=== PATIENT | female | born 1945 | race Caucasian/White ===

== ENCOUNTER → 2020-02-23 13:49 | Outpatient (CLI) | payer OTHER, SELFPAY ==
[2020-02-23 14:03] LABS: Bacteria Urine None Seen; WBC Urine None Seen (0-5/HPF)
[2020-02-23 14:46] LABS: Add Manual Diff / Slide Review NO; Basophils Absolute Auto 100 /uL (0-100); Basophils Percent Auto 1.1 % (0-2); Eosinophils Absolute Auto 600 /uL (0-450); Eosinophils Percent Auto 6.2 % (2-4); Hematocrit 35.6 % (36-46); Hemoglobin 11.8 g/dL (12.0-16.0); Lymphocytes Absolute Auto 2500 /uL (1100-4500); Lymphocytes Percent Auto 26.2 % (25-40); Mean Corpuscular HGB Conc 33.3 % (30-36); Mean Corpuscular Hemoglobin 30.7 PG (26-34); Mean Corpuscular Volume 92.3 fL (80-100); Monocytes Absolute Auto 600 /uL (0-900); Monocytes Percent Auto 6.4 % (3-14); Neutrophils Absolute Auto 5700 /uL (1500-7000); Neutrophils Percent Auto 60.1 % (50-75); Platelet Count 298 X10^3/uL (150-400); Red Blood Cell Count 3.86 X10^6/uL (4.0-5.2); Red Cell Distribution Width 13.1 % (11.6-14.8); White Blood Cell Count 9.5 X10^3/uL (4.5-11.0)
[2020-02-23 14:51] LABS: BUN Creatinine Ratio 34.7 (6-22); Blood Urea Nitrogen 25 mg/dL (7-17); Calcium 9.2 mg/dL (8.4-10.2); Carbon Dioxide 32 mmol/L (22-32); Chloride 102 mmol/L (98-107); Estimated Glomerular Filt Rate > 60.0 mL/min (>60); Glucose 121 mg/dL (80-110); HEMOLYSIS < 15 (0-50); Hemoglobin A1C% w Est Avg Glu 5.4 % (4.0-6.0); Potassium 4.1 mmol/L (3.4-5.1); Sodium 137 mmol/L (137-145)
[2020-02-23 15:05] LABS: Appearance Urine UA CLEAR; Bilirubin Urine UA NEGATIVE (NEGATIVE); Color Urine UA YELLOW; Glucose Urine UA NEGATIVE (Negative); Ketones Urine UA NEGATIVE (NEGATIVE); Leukocyte Esterase Urine UA NEGATIVE (NEGATIVE); Nitrite Urine UA NEGATIVE (Negative); Occult Blood Urine UA TRACE-LYSED (Negative); Protein Urine UA NEGATIVE (Negative); Urobilinogen Urine UA 0.2 E.U./dL (0.2)
[2020-02-23 15:24] LABS: Culture Indicated Urine Cult Not Indicated; RBC Urine 0-1/HPF (0-5/HPF); Squamous Epithelial Cell Urine 0-1 /HPF (0-5/HPF)
== END ==
PROVIDERS: Referring Provider Orthopaedic Surgery; Visit Provider Orthopaedic Surgery
DX: Z01.818 Encounter for other preprocedural examination (principal); Z01.812 Encounter for preprocedural laboratory examination; R73.9 Hyperglycemia, unspecified; N39.0 Urinary tract infection, site not specified
CPT/HCPCS: 36415; 80048; 81001; 83036; 85025; 93005

== ENCOUNTER → 2020-03-11 13:10 | Outpatient (CLI) | payer OTHER, SELFPAY ==
[2020-03-11 14:36] LABS: COVID19 -Nasal RAPID Negative (Negative)
== END ==
PROVIDERS: Referring Provider Physician Assistant; Visit Provider Physician Assistant
DX: Z01.812 Encounter for preprocedural laboratory examination (principal); Z20.828 Contact with and (suspected) exposure to other viral communicable diseases
CPT/HCPCS: 87635; C9803

== ENCOUNTER 2020-03-15 13:00 | Observation (INO) | payer OTHER, SELFPAY ==
[2020-03-09 08:27] VITALS: BMI 23.8
[2020-03-14] VITALS (16 sets, daily range): BP systolic 99–131; BP diastolic 47–81; PULSE 75–99; RESP 12–18; TEMP 35.2–37.2; O2SAT 96–100; BMI 24.3
--- NOTE | 2020-03-14 | DI.RAD.S_ITS ---
PROCEDURE: XR HIP W PEL IF DONE LT 2V INDICATIONS: POST OPERATIVE LEFT HIP TECHNIQUE: AP pelvis and lateral view of the left hip [facility]. [facility], [facility]14[facility]2020, 10:10. FINDINGS: Bones: Patient is status post left hip arthroplasty, with hardware components in expected positions. The hip joint appears congruent. The visualized bony structures appear intact. Moderate right hip joint degeneration. Soft tissues: Overlying postoperative changes are noted. No suspicious soft tissue densities. IMPRESSION: Expected postoperative appearance. Dictated by: Wes Woodson M.D. on 03/14/2020 at 12:26 Approved by: Wes Woodson M.D. on 03/14/2020 at 12:26
--- NOTE | 2020-03-14 06:00 | DI.RAD.S_ITS ---
PROCEDURE: XR HIP W PEL IF DONE LT 2V INDICATIONS: INTEROPERATIVE LEFT HIP TECHNIQUE: 2 view(s) of the hip acquired. COMPARISON: [facility] [place], CR, XR PELVIS WITH LATERAL HIP LEFT, 02/23/2020, 11:18. FINDINGS: Intraoperative image demonstrates left hip arthroplasty. There is good anatomic alignment. However, it is noted that the entire arthroplasty not included within the field of view. IMPRESSION: Intraoperative left hip arthroplasty as above. Dictated by: Aileen Tate M.D. on 03/14/2020 at 10:55 Approved by: Aileen Ttae M.D. on 03/14/2020 at 10:56
[2020-03-14] MEDS: LACTATED RINGERS 1,000 ML 42 ML IV ×2 (07:15→10:23)
[2020-03-14] MEDS: ACETAMINOPHEN 325 MG TABLET 975 MG PO (07:18)
[2020-03-14] MEDS: PREGABALIN 75 MG CAPSULE PO (07:19)
[2020-03-14] MEDS: MELOXICAM 7.5 MG TABLET 15 MG PO (07:19)
[2020-03-14] MEDS: VANCOMYCIN 1,000 MG/200 ML PIGGYBACK 200 MG IV (07:19)
[2020-03-14] MEDS: CEFAZOLIN 2 GM/100 ML FROZ.PIGGY IV (07:45)
--- NOTE | 2020-03-14 07:45 | PM.PREOP ---
Pre-operative Note COVID-19 COVID-19 status: Negative Interval Note History & Physical reviewed/Exam performed by Physician: Yes Changes to H&P: No
--- NOTE | 2020-03-14 07:46 | P.OP_ITS ---
Operative Date/Time/Diagnoses Date of procedure: 03/14/20 Time of procedure: 07:46 Pre-op diagnosis: Left hip osteoarthritis Post-op diagnosis: same Procedure & Clinicians Procedure: left total hip arthroplasty anterior approach Same procedure as scheduled: Yes Indications: The patient has had progressively worsening left hip pain with ra diographic changes consistent with arthritis. Non-operative management has failed and the patient has requested total hip replacement. The risks, benefits and alternatives to surgery were discussed with the patient prior to proceeding. Risks discussed included, but were not limited to, failure to relieve pain, leg length discrepancy, dislocation, stiffness, infection, nerve damage, deep venous thrombosis, pulmonary embolism, stroke, coma, heart attack, permanent paralysis and , as well as the potential need for eventual revision of the prosthetic. Surgeon: Kate Cruz Boom Boss: Mirna Oneal Anesthesia Type: General and Spinal Operative Notes Findings: severe left hip osteoarthritis, good stability adequate bone Closure Type: primary Specimen(s): none sent Prosthetic devices, grafts, tissues, transplants, or devices: Cruz and nephew 52 mm R3 cup, size 7 standard offset anthology, +0 Oxinium by 36 Estimated Blood Loss (mL): 250 Blood products transfused: none Procedure in detail: The patient was brought to the operating room. Patient was carefully positioned in the supine position. Time-out was performed and antibiotics were given. Anesthesia was induced. She was positioned in the on the table in order to allow hyperextension of the hip. The left lower extremity was prepped and draped in a standard sterile fashion. An anterior left hip incision was made 1 fingerbreadth lateral to the anterior superior iliac spine and extended distally towards the greater trochanter. Dissection was carried out through skin and subcutaneous tissues. Superficial hemostasis was achieved. The fascia over the tensor fascia izzy was defined and incised with a knife. Two Allis clamps were used to grasp the fascia. Tensor fascia izzy was retracted laterally. A gelpi retractor was placed. Dissection was carried out down along the neck. The circumflex vessels were carefully identified and cauterized with the Aqua Mantis. There was good visualization of the femoral neck. A Cobra was placed superior to the neck and the gluteus fibers were carefully stripped from that superior aspect of the capsule. A 2nd retractor was placed along the inferior aspect of the neck. The rectus insertion along the capsule was partially released. A 3rd retractor that was then gently placed over the rim of the acetabulum under the rectus. Capsule was carefully incised and released from the intertrochanteric line circumferentially superior to the mid sagittal line and inferiorly to the mid sagittal line until the lesser trochanter was palpable. A tag stitch was placed both in the superior and inferior limb of the capsular insertion. Along the acetabulum capsule was also released up to the mid sagittal 12:00 position. A portion of the labrum was resected. A saw was used to perform an osteotomy at the level of the intertrochanteric line and the junction of the superior femoral neck leaving approximately 1 finger breath of residual inferior neck above the lesser trochanter. A 2nd cut was made along the femoral neck at the base of the head and a napkin ring of neck was removed. Corkscrew was placed in the femoral head and the head was removed without difficulty. Retractors were then repositioned around the acetabulum. Residual labrum was resected and additional osteophytes were removed. A reamer that was 4 mm below the templated size was placed by hand in the acetabulum and it was reamed to centralize the acetabulum. It was then reamed up to 2 under the templated size and fluoroscopy was brought in to confirm the position of the reaming and depth of reaming. I reamed 1 under the anticipated size and touched the rim with line to line reaming. A trial cup was placed and noted that it was appropriately sized and fluoroscopy confirmed position and depth. The component was open and inserted without difficulty fluoroscopic imaging was used to confirm that the cup had been adequately seated and was well positioned. The cup was tested and noted to be stable. it was further stabilized with a single screw. The liner was placed. Attention was then directed to the femur. The femur was gently hyperextended additional capsular release was performed as needed in order to allow adequate visualization of the proximal femur with elevation of the femur. Patient was placed in a hyperextended slightly adducted position with maximum external rotation. Box osteotome was used to check for any residual neck as well as scler otic bone along the trochanter. Vandiver pepper was placed in the femur. Additional broaching was performed. Canal finder was used to determine the alignment of the canal and position. Size 1 broach was placed. The canal was then appropriately broached up to the templated size as long as there was adequate stability of the broach and serial advancement of the broach without excessive impingement. Sp ecific attention was directed at avoiding varus attempting to direct the distal aspect of the broach more anteriorly and avoiding excessive anteversion. Trial reduction showed acceptable range of motion, good stability, no posterior impingement, anabaptist of leg length and appropriate lateral shuck. I also hyperflexed the hip and checked that there was no impingement anteriorly and there was good stability with flexion, adduction and internal rotation. Marcaine and Exparel were injected. The stem was placed without difficulty. Repeat trial reduction and x-ray showed acceptable overall position, length, and no evidence of the femoral fracture. Final head was placed. Wound was meticulously irrigated with normal saline. The hip was reduced and additional Exparel and Marcaine were injected. The capsule was closed with interrupted nonabsorbable sutures. The fascia of the tensor was closed with interrupted and running Vicryl. No drain was placed. Any tensor fascia izzy muscle that appeared to be contused or injured which was a minimal amount was carefully resected. Capsule around the tensor was injected with Exparel and Marcaine. The skin was closed with barbed stitches for the s ubcutaneous tissue and skin. We also used surgical glue. The wound was dressed sterilely. Brief Betadine soak was also used and was meticulously irrigated with normal saline. Patient was transferred to recovery room in satisfactory condition. Complications: none Post-operative Condition: stable Disposition: Acute Care Plan for aftercare: The patient will be maintained on a standard total hip replacement protocol with weight bearing as tolerated and anterior hip precautions. The patient will receive Aspirin and sequential compression devices for DVT prophylaxis. The patient will be discharged home when safe for the home environment.
--- NOTE | 2020-03-14 08:36 | SUR.OPER ---
Supine on padded [place] table with bilateral legs secured in padded positioning boots and suspended in positioning spars, operative leg in traction per surgeon. Head on one pillow. Arm on non-operative side secured on padded armboard <90 degrees abduction. Arm on operative side padded and resting across chest then secured with tape over sheet. Padded perineal post in place per surgeon.
[2020-03-14] MEDS: BUPIVACAINE 0.25% W/ EPI (PF) 10 ML VIAL 20 ML INJ (08:58)
[2020-03-14] MEDS: TRANEXAMIC ACID 1,000 MG VIAL 1000 MG IV (08:59)
[2020-03-14] MEDS: TRANEXAMIC ACID 1,000 MG VIAL 1000 MG INJ (10:25)
[2020-03-14] MEDS: BUPIVACAINE LIPOSOME 266 MG/20 ML VIAL INJ (10:37)
[2020-03-14] MEDS: LACTATED RINGERS 1,000 ML 125 ML IV ×2 (12:39→21:28)
--- NOTE | 2020-03-14 12:44 | PC.NURSE ---
Day shift note: Patient admitted to room 210, S/P Left OSMAR scheduled by Dr. Cruz. Received patient on RA, sats 98%, awake, alert, and pleasantly cooperative. SCDs and IVF initiated on arrival. Oriented to room, environment, and plan of care. No C/O pain or nausea, tolerating fluids. Requesting warm blankets. In touch with daughter via phone/text. High fall risk precautions initiated, call light within reach.
--- NOTE | 2020-03-14 14:05 | PT.IIE ---
Current Diagnoses Unilateral primary osteoarthritis, left hip (03/14/20) Surgery Performed Operation Date: 03/14/20 07:45 Actual Procedures p Total Hip Arthroplasty/Anterior Approach(Left) - Kate Cruz MD Surgical History (Last Updated 03/09/20 @ 09:27 by Tata Santos, RN) History of 3 abortions History of arthroscopy of both knees Hx of bilateral cataract extraction Hx of eye surgery Hx of tubal ligation Medical History (Last Updated 03/09/20 @ 09:35 by Tata Santos RN) Arthritis Cellulitis Depression Elbow pain, left Exercise-induced asthma Glaucoma Herpes Hypotension Low back pain Osteoarthritis Osteoporosis Pseudogout RLS (restless legs syndrome) Shingles Skin cancer (06/2019) Sleep apnea Spinal stenosis TIA (transient ischemic attack) Physical Therapy Inpatient Evaluation/Re-Eval M1 PT/OT-IP Prior Functional Status Start: 03/14/20 16:09 Freq: NEEDED Status: Active Protocol: Document 03/14/20 14:05 AB (Rec: 03/14/20 16:19 AB [id number]) Medical Review Prior Functional Status Medical History Reviewed Yes Communication able to make needs known Mobility and Gait pt stated that she is independent with all mobiltiies and ambulation wthout AD Social History Household Members none Living Arrangements House Number of Floors (Floors) One Floor Number of Stairs To Enter/Railing? 5 steps to enter without rails Home Environment Standard Height Toilet,Tub/ Shower Home Equipment Front Wheel Walker,Straight Cane,Raised Toilet Seat w/ Armrests,Hand Held Shower Additional Social History Comment pt stated that her friend Winnie will stay with her to assist her as long as needed M2 PT-IP Current Condition Start: 03/14/20 16:09 Freq: NEEDED Status: Active Protocol: Document 03/14/20 14:05 AB (Rec: 03/14/20 16:19 AB [email or web address]) Physical Therapy Current Condition Current Condition Evaluation Date 03/14/20 Treatment Diagnosis s/p L OSMAR anterior approach; difficulty in walking Onset Date 03/14/20 Precautions Anterior Hip Precautions No Hip Extension,No Hip External Rotation Weight Bearing Status Weight Bearing Status Weight Bear as Tolerated Allowed Weight Bearing Amount (enter % LLE: WBAT or #) (%) M3 PT-IP Subjective Start: 03/14/20 16:09 Freq: NEEDED Status: Active Protocol: Document 03/14/20 14:05 AB (Rec: 03/14/20 16:19 AB [id number]) Subjective Physical Therapy Visit Type Type Initial Evaluation Visit Start Time 14:05 Visit Stop Time 14:59 Total Visit Minutes 54 Number of MONITORING AND EVALUATION ADVISOR Visits 0 Physical Therapy Visit Comments Patient Comments pt is agreeable to do PT Therapy Pain Assessment Pain When Pain Assessed At Rest Location Left Hip Intensity 7 Scale Used Numeric (0 - 10) Pain Management Techniques Apply Cold,Distraction, Modification of Treatment,Re- positioning,Timing of Activity with Medications M4 PT-IP Mobility and Gait Start: 03/14/20 16:09 Freq: NEEDED Status: Active Protocol: Document 03/14/20 14:05 AB (Rec: 03/14/20 16:19 [email or web address]) PT-Bed Mobility Assessment Supine to Sit Supine to Sit Standby Assistance PT-Transfer Assessment Sit to and From Stand Sit to and from Stand Minimal Assistance,1 Person Assistance,Use of Upper Extremities Equipment Transfer Assistive Device Gait Belt,Front Wheeled Walker Orthotic/Prosthetic Devices or Brace: No Transfers Transfer Destination Chair Transfer Technique ambulated using FWW Transfer Ability Level of Assist Contact Guard Assistance,1 Person Assistance,Use of Upper Extremities Comments Mobility Comments educated pt on anterior hip precautions. completed supine to sit SBA and cues for safety. completed sit to stand min A and cues and ambulated in room min A ~ 40 ft requiring cues for quads activation and to maintain hip precautions. pt agreed to sit up on chair after ambulation. positioned on chair. call light and table placed within reach. Left pt with nurse. Gait Assessment Gait Gait Assistance Required: Minimum Assistance Distance (Feet) 40 Able to Maintain Weight Bearing Status Yes During Gait Assistive Devices Assistive Device Gait Belt,Front Wheeled Walker Orthotic/Prosthetic Devices or Brace: No Gait Deviations General Gait Pattern Antalgic,Decreased Stride Length,Decreased Feet Clearance Factors Limiting Gait Function Factors Limiting Gait Function Decreased Activity Tolerance, Decreased Strength,Limited Range of Motion,Pain,Poor Balance,Poor Safety Awareness Comments Gait Comments pls refer to mobility section for details PT-Balance Assessment Sitting Balance and Reactions Static Sitting Balance Ability Good Dynamic Sitting Balance Ability Good Standing Balance and Reactions Static Standing Balance Ability Fair Dynamic Standing Balance Ability Fair Device Used FWW M5 PT-IP Objective Assessments Start: 03/14/20 16:09 Freq: NEEDED Status: Active Protocol: Document 03/14/20 14:05 AB (Rec: 03/14/20 16:19 AB [id number]) Orientation Orientation/Cognition Level of Alertness Alert Orientation Name,Place,Situation Language Function Ability No Deficits Noted Safety Awareness Decreased Safety Awareness Memory Description Short Term Impaired Gross Range of Motion Lower Extremity ROM Assessment Within Functional Limits Strength Lower Extremity Strength Assessment Left Impaired Hip 3/5 Knee 4/5 Coordination Assessment Gross Coordination Gross Coordination WNL Sensation Assessment Sensation Gross Sensation WNL Muscle Tone Muscle Tone WNL Yes M6 PT-IP Treatment Start: 03/14/20 16:09 Freq: NEEDED Status: Active Protocol: Document 03/14/20 14:05 AB (Rec: 03/14/20 16:19 AB [id number]) Physical Therapy Treatment Education Education Provided Precautions,Weight Bearing Status,Post-Op Packet,Safety M7 PT-IP Assessment and Plan Start: 03/14/20 16:09 Freq: NEEDED Status: Active Protocol: Document 03/14/20 14:05 AB (Rec: 03/14/20 16:19 AB [id number]) PT Summary Assessment and Plan Potential Rehabilitation Potential Good Status of Condition at Evaluation Stable Summary Impairments Pain,ROM,Strength,Balance, Sensation,Cognition,Bed Mobility,Transfers,Gait, Activity Tolerance Assessment Summary pt requiring min A and cues for ambulation using FWW. pt plans to go home and her friend will assist her. pt stated that she is set up for outpt PT already. will conduct caregiver training when appropriate and also complete stair climbing training prior to d/c. will continue to assess progress. Goals Bed Mobility Goal Independent Transfer Goal Independent,Front Wheeled Walker Gait Goal Independent,Front Wheel Walker Gait Distance 200 Other Goals up/down 5 steps using SPC/FRAMING SPECIALIST CGA Days to Meet Goals 5 Frequency of Treatment Frequency Of Treatment Twice a Day Treatment Plan Physical Therapy Treatment Plan Bed Mobility Training,Transfer Training,Gait Training, Therapeutic Exercise,Balance Retraining,Post Op Education, Discharge Planning,Hot or Cold Pack,Neuromuscular Re-ed, Coordination Retraining,Manual Therapy Other Recommendations and Next Treatment ambulation, stair climbing, Focus caregiver training when appropriate Recommendations To Nursing Amount of Assist Needed 1 Person Assist Discharge Recommendations PT Discharge Recommendations Home with Assistance, Outpatient PT Transportation Needs at Discharge Private Vehicle
[2020-03-14] MEDS: TRAMADOL 50 MG TABLET PO (14:19)
[2020-03-14] MEDS: ACETAMINOPHEN 325 MG TABLET 650 MG PO ×2 (14:19→21:12)
[2020-03-14] MEDS: DOCUSATE 100 MG CAPSULE PO (21:12)
[2020-03-14] MEDS: ASPIRIN EC 81 MG TABLET PO (21:12)
[2020-03-14] MEDS: hydrOXYzine pamoate 25 MG CAPSULE PO (21:14)
[2020-03-14] MEDS: polyethylene glycoL 3350 17 GM POWD.PACK PO (21:15)
[2020-03-14] MEDS: HYDROCODONE/ACET 5/325 TABLET 1 TAB PO (23:29)
[2020-03-15] VITALS (12 sets, daily range): BP systolic 82–131; BP diastolic 45–68; PULSE 67–99; RESP 13–18; TEMP 36.4–37; O2SAT 93–100
[2020-03-15] MEDS: hydrOXYzine pamoate 25 MG CAPSULE PO ×2 (04:36→18:23)
[2020-03-15] MEDS: NAPROXEN 250 MG TABLET 500 MG PO (07:00)
[2020-03-15 07:17] LABS: Hematocrit 28.1 % (36-46); Hemoglobin 9.5 g/dL (12.0-16.0)
--- NOTE | 2020-03-15 07:53 | DI.RAD.S_ITS ---
PROCEDURE: XR HIP W PEL IF DONE LT 2V COMPARISON: [facility], [place], XR HIP W PEL IF DONE LT 2V, 03/14/2020, 11:10. INDICATIONS: post operative spasms FINDINGS: AP view of the pelvis demonstrates postoperative changes of total left hip replacement. There are moderate degenerative changes of the right hip. No fracture or dislocation. No perihardware lucency or perihardware fracture of the left hip. The sacroiliac joint has degenerative changes. IMPRESSION: 1. Postoperative changes total left hip replacement without radiographic complication. 2. Moderate degenerative changes of the right hip. Dictated by: Fito Lay M.D. on 03/15/2020 at 9:33 Approved by: Fito Lay M.D. on 03/15/2020 at 9:35
--- NOTE | 2020-03-15 07:55 | P.PN_ITS ---
Subjective Subjective Date Patient Seen: 03/15/20 Time Patient Seen: 07:55 Interval history: She notes that she was out of bed yesterday with nursing and therapy. She is voiding without difficulty. She has been having fairly severe spasms over the last couple hours. She did have similar spasms preoperatively but they are very intense right now. She was taking Vicodin preoperatively. Exam Vital Signs (past 8 hours): - 03/15/20 00:05 03/15/20 05:15 03/15/20 05:23 Temperature 98.1 F 97.6 F Pulse Rate 67 70 69 Respiratory Rate 15 15 16 Blood Pressure 106/52 L 107/49 L 108/58 L Pulse Oximetry 96 93 Oxygen Delivery Method Room Air Oxygen Flow Rate 0 Narrative Exam Narrative: She is obviously uncomfortable in bed, her leg lengths look symmetrical her calfs are soft her dressings intact she has moderate pain with gentle range of motion in her hip Objective Labs Result Diagrams: 03/15/20 06:35 Labs: Laboratory Results - last 24 hr 03/15/20 06:35 Hgb 9.5 L Hct 28.1 L PFSH Medical History (Updated 03/09/20 @ 09:35 by Tata Santos RN) Arthritis Cellulitis Depression Elbow pain, left Exercise-induced asthma Glaucoma Herpes Hypotension Low back pain Osteoarthritis Osteoporosis Pseudogout RLS (restless legs syndrome) Shingles Skin cancer (06/2019) Sleep apnea Spinal stenosis TIA (transient ischemic attack) Surgical History (Updated 03/09/20 @ 09:27 by Tata Santos RN) History of 3 abortions History of arthroscopy of both knees Hx of bilateral cataract extraction Hx of eye surgery Hx of tubal ligation Social History household members: none Smoking Status: Former smoker alcohol intake: current Assessment & Plan Post-op Postoperative Procedures: Procedures Operation Date: 03/14/20 07:45 Actual Procedures Side Surgeon p Total Hip Arthroplasty/Anterior Approach Left Kate Cruz MD Postoperative day: 1 Postoperative status narrative: She is having significant spasms postoperatively. I have recommended Valium and Decadron. She can take additional Vicodin. Think it is reasonable to get a repeat x-ray. She feels s he would be better if she was able to get up to a chair which I think is reasonable.
[2020-03-15] MEDS: DOCUSATE 100 MG CAPSULE PO ×2 (08:10→20:29)
[2020-03-15] MEDS: ASPIRIN EC 81 MG TABLET PO ×2 (08:10→20:29)
[2020-03-15] MEDS: ACETAMINOPHEN 325 MG TABLET 650 MG PO ×3 (08:10→20:29)
[2020-03-15] MEDS: diazePAM 5 MG TABLET PO ×2 (08:10→16:39)
[2020-03-15] MEDS: DEXAMETHASONE 4 MG/ML VIAL IV ×3 (08:11→20:29)
--- NOTE | 2020-03-15 09:11 | CM.DANOTE ---
Addendum entered by Michelle Ivey R.N. 03/15/20 14:40: Checked in with patient after going over Medicare Choice List. She is requesting [employer]. Daphne, , faxed over H&P, face sheet, and P.T. notes to [facility]. Will complete face to face. Original Note: DCP: Case received EMR reviewed and met with patient. Introduced self and role. Was able to obtain information from patient regarding her baseline activity status prior to surgery, as well as her current living situation. DCP assessment completed with information currently available. Patient is a 74 year old female who admitted yesterday morning to the care of the orthopedic team. PCP: Dr. Howard. Payer: confirmed: [facility]. Patient came to the hospital via private vehicle for a surgical procedure. She had left total hip arthroplasty. Patient has had history of unilateral primary osteoarthritis of her left hip. Met with patient in her room. She was sitting up in bed. Confirmed with her that she does reside alone in [place], but has a friend that will be assisting her when she is discharged. At baseline, she mentioned that she has used no devices (DME), and was an avid velarde. Dr. Cruz, orthopedist, stated that patient will need home health. Spoke to patient about home health agencies. Clarified with her that they do not come every day. She is also wanting a shower aide. Gave her some agency names, [facility], [facility], [facility]. She stated, she has no preference on agencies. This protective services case worker called all three agencies, [facility] is on the calendar list for this week. P: DCP to continue to follow, will fax [facility] information, already spoke to Carmen at [facility]. Michelle Ivey RN/[employer]
--- NOTE | 2020-03-15 10:53 | PT.IPTN ---
Current Diagnoses Unilateral primary osteoarthritis, left hip (03/14/20) Surgery Performed Operation Date: 03/14/20 07:45 Actual Procedures p Total Hip Arthroplasty/Anterior Approach(Left) - Kate Cruz MD Physical Therapy Treatment Note M2 PT-IP Current Condition Start: 03/14/20 16:09 Freq: NEEDED Status: Active Protocol: Document 03/14/20 14:05 AB (Rec: 03/14/20 16:19 AB [id number]) Physical Therapy Current Condition Current Condition Evaluation Date 03/14/20 Treatment Diagnosis s/p L OSMAR anterior approach; difficulty in walking Onset Date 03/14/20 Precautions Anterior Hip Precautions No Hip Extension,No Hip External Rotation Weight Bearing Status Weight Bearing Status Weight Bear as Tolerated Allowed Weight Bearing Amount (enter % LLE: WBAT or #) (%) M3 PT-IP Subjective Start: 03/14/20 16:09 Freq: NEEDED Status: Active Protocol: Document 03/15/20 10:00 SP (Rec: 03/15/20 12:14 SP [id number]) Subjective Physical Therapy Visit Type Type Treatment Note Visit Start Time 10:00 Visit Stop Time 10:53 Total Visit Minutes 52 Number of CLOTH WASHER BACK TENDER Visits 1 Physical Therapy Visit Comments Patient Comments I want to get up and go for a walk as long as the spasming pain in my L hip/thigh goes away, have been in a position to help keep it at bay. Patient Goals Return home with her friends assistance. Therapy Pain Assessment Pain When Pain Assessed At Rest Pain Present Pain Present Pain Reported Location Left Hip Intensity 8 Scale Used burst of shooting spasming pain over lateral/posterior L hip and mid quad Description Cramping,Sharp,Spasm,With Movement Pain Behaviors Calling Out,Facial Grimacing, Guarding,Holding Area, Restlessness,Wincing Pain Management Techniques Apply Cold,Modification of Treatment,Re-positioning, Timing of Activity with Medications M4 PT-IP Mobility and Gait Start: 03/14/20 16:09 Freq: NEEDED Status: Active Protocol: Document 03/15/20 10:00 SP (Rec: 03/15/20 12:14 SP [id number]) PT-Bed Mobility Assessment Rolling Type of Rolling Bilateral Level of Assist Standby Assistance Supine to Sit Supine to Sit Standby Assistance Scooting Scooting to Edge of Bed Standby Assistance PT-Transfer Assessment Sit to and From Stand Sit to and from Stand Contact Guard Assistance,1 Person Assistance,Use of Upper Extremities Equipment Transfer Assistive Device Gait Belt,Front Wheeled Walker Orthotic/Prosthetic Devices or Brace: No Transfers Transfer Destination Chair,Toilet Transfer Technique ambulated using FWW Transfer Ability Level of Assist Contact Guard Assistance, Minimal Assistance,1 Person Assistance,Use of Upper Extremities Comments Mobility Comments Pt had spasming in L posterolateral hip and mid thigh when arrived. Provided gentle manual STMs utilizing room lotion with good results. Instructed sciatic nerve flossing to L hip w/ ankle pumps to decrease shooting spasms with good results but instructed no excessive hip flexion using B UE support at thigh. Rolling and supine > sitting and scoot to EOB SBA with RLE supporting LLE. SIt<> stand with cuing for BUE push from bed to stand then heavy B UE WB on FWW to complete knee extension and upright posture CG- Min A. Ambulated to bathroom approx 10 ft step to gait intially then progressed within no L hip ext precautions to toilet, occasional cuing for FWW complete pivot and usign grab bar to sit, required FWW stabilization due to excessive RUE WB on FWW with CG- Min slow descent to toilet. Pt completed self hygiene after successful lrg amount of voiding. Pt sit> stand Min A from toilet then ambulate to sink with cuing for body closer within FWW, over wt shift during turn Self recovery usign FWW. STationary standing at sink washing hands, stable within FWW. Pt ambulated further into hallway approx 236 ft total around nursing station and ascend/ descend 3 stairs B HR CGA with occasional cuing for proper patterning lead RLE and descend Lead LLE with good carryover. When returned to room pt sat up in chair, nursing arrived to complete further assessements. CLOTH WASHER BACK TENDER recommended chair alarm for safety. DIscussed further caregiver training in pm (1500 ) with friend Winnie of which patient will call and coordinate for gait and stair mgt with SPC adn CAUSTICISER 5 steps to assimulate home enterance. Pt is set up with out pt therapy. Vitals taken end of tx with concerns: BP in standing 89/60 HR 113 bpm over coat, over skin 69/48 non symptomatic wtih HR 103. Nursing concerned as well for safety during mobility. Will continue to assess pm tx. Gait Assessment Gait Gait Assistance Required: Contact Guard Assist,Minimum Assistance,1 Person Assist Distance (Feet) 236 Able to Maintain Weight Bearing Status Yes During Gait Assistive Devices Assistive Device Gait Belt,Front Wheeled Walker Orthotic/Prosthetic Devices or Brace: No Gait Deviations General Gait Pattern Antalgic,Decreased Stride Length,Decreased Feet Clearance Factors Limiting Gait Function Factors Limiting Gait Function Decreased Activity Tolerance, Decreased Strength,Limited Range of Motion,Pain,Poor Balance,Poor Safety Awareness Comments Gait Comments See mobility comments for details. Stair Climbing Assessment Evaluation Level of Assist On Stairs Contact Guard Assistance,1 Person Assistance Devices Stair Climbing Assistive Devices Left Railing,Right Railing Technique/Endurance Stair Climbing Direction Ascend and Descend Stair Climbing Technique Step to Step Number of Steps Climbed 3 Stair Climbing Set # Repetitions (reps) 1 Comments Stair Climbing Comments See mobility comments for details. PT-Balance Assessment Sitting Balance and Reactions Static Sitting Balance Ability Good Dynamic Sitting Balance Ability Good Standing Balance and Reactions Static Standing Balance Ability Fair Dynamic Standing Balance Ability Poor Device Used FWW M5 PT-IP Objective Assessments Start: 03/14/20 16:09 Freq: NEEDED Status: Active Protocol: Document 03/14/20 14:05 AB (Rec: 03/14/20 16:19 AB [id number]) Orientation Orientation/Cognition Level of Alertness Alert Orientation Name,Place,Situation Language Function Ability No Deficits Noted Safety Awareness Decreased Safety Awareness Memory Description Short Term Impaired Gross Range of Motion Lower Extremity ROM Assessment Within Functional Limits Strength Lower Extremity Strength Assessment Left Impaired Hip 3/5 Knee 4/5 Coordination Assessment Gross Coordination Gross Coordination WNL Sensation Assessment Sensation Gross Sensation WNL Muscle Tone Muscle Tone WNL Yes M6 PT-IP Treatment Start: 03/14/20 16:09 Freq: NEEDED Status: Active Protocol: Document 03/15/20 10:00 SP (Rec: 03/15/20 12:14 SP [id number]) Physical Therapy Treatment Exercises Exercises Ankle Pumps,Gluteal Sets,Quad Sets,Heel Slides,Seated Knee Flexion/Extension Knee ROM Measurement 90deg Education Education Provided Precautions,Weight Bearing Status,Post-Op Packet,Safety Other Treatments Other Treatment Performed Manual retro grade effleurage STMs to L glut med, ITB, mid to distal quad to assist decrease muscle spasming using hosp lotion with good results . Instructed sciatic nerve flossing modified supine with grasping behind lower thigh in hip flexion 90 deg, knee ext to tolerance then slow ankle pump to decreased muscle spasming, good feedback was helpful. Instructed not to pull leg into excessive hip flexion with verbal understanding and demonstration. M7 PT-IP Assessment and Plan Start: 03/14/20 16:09 Freq: NEEDED Status: Active Protocol: Document 03/15/20 10:00 SP (Rec: 03/15/20 12:14 SP [id number]) PT Summary Assessment and Plan Potential Rehabilitation Potential Good Status of Condition at Evaluation Stable Summary Impairments Pain,ROM,Strength,Balance, Sensation,Cognition,Bed Mobility,Transfers,Gait, Activity Tolerance Progress Towards Goals Slow Progress due to Pain,Slow Progress due to Activity Tolerance Assessment Summary pt requiring SBA during bed mobility, CGA during sit to stand, CG-Min A during transfer and gait usign FWW, LOB to L during pivot turn at sink and hallway gait approx 236 ft. Occasional cuing for hand placement for safety during sit<> stand, downward pressure on FWW with 1 UE to decrease FWW tipping. Good patterning adn RLE postioning within precautionsd during gait. pt plans to go home and her friend will assist her. pt stated that she is set up for outpt PT already. will conduct caregiver training this afternoon approx 3pm ( lived in [place] and needs to call her to come), will need to reassess 5 step stair climbing training with B SPC due to no hand rail at home prior to d/c with caregiver. Concerned of hypotension during tx. Pt had call light and all needs in reach with nursing to get chair alarm. Recommended MISSILE TECHNICIAN walking with patient with safe vitals before lunch to assist wtih decrease LLE pain and nursing confirmed. Goals Bed Mobility Goal Independent Transfer Goal Independent,Front Wheeled Walker Gait Goal Independent,Front Wheel Walker Gait Distance 200 Other Goals up/down 5 steps using SPC/CAUSTICISER CGA Days to Meet Goals 5 Frequency of Treatment Frequency Of Treatment Twice a Day Treatment Plan Physical Therapy Treatment Plan Bed Mobility Training,Transfer Training,Gait Training, Therapeutic Exercise,Balance Retraining,Post Op Education, Discharge Planning,Hot or Cold Pack,Neuromuscular Re-ed, Coordination Retraining,Manual Therapy Other Recommendations and Next Treatment ambulation, 5 step stair Focus climbing SPC w/ CAUSTICISER with caregiver training today at 3 pm. Recommendations To Nursing Amount of Assist Needed 1 Person Assist Discharge Recommendations PT Discharge Recommendations Home with Assistance, Outpatient PT Transportation Needs at Discharge Private Vehicle
--- NOTE | 2020-03-15 14:04 | CM.DPNOTE ---
Faxed FS, PT and H&P clinicals to [facility] for review. Daphne Hernandez CM Asst.
--- NOTE | 2020-03-15 16:04 | PT.IPTN ---
Current Diagnoses Unilateral primary osteoarthritis, left hip (03/15/20) Surgery Performed Operation Date: 03/14/20 07:45 Actual Procedures p Total Hip Arthroplasty/Anterior Approach(Left) - Kate Cruz MD Physical Therapy Treatment Note M2 PT-IP Current Condition Start: 03/14/20 16:09 Freq: NEEDED Status: Active Protocol: Document 03/14/20 14:05 AB (Rec: 03/14/20 16:19 AB [id number]) Physical Therapy Current Condition Current Condition Evaluation Date 03/14/20 Treatment Diagnosis s/p L OSMAR anterior approach; difficulty in walking Onset Date 03/14/20 Precautions Anterior Hip Precautions No Hip Extension,No Hip External Rotation Weight Bearing Status Weight Bearing Status Weight Bear as Tolerated Allowed Weight Bearing Amount (enter % LLE: WBAT or #) (%) M3 PT-IP Subjective Start: 03/14/20 16:09 Freq: NEEDED Status: Active Protocol: Document 03/15/20 15:14 SP (Rec: 03/15/20 18:15 SP [id number]) Subjective Physical Therapy Visit Type Type Treatment Note Visit Start Time 15:14 Visit Stop Time 16:04 Total Visit Minutes 50 Notes Friend, Jacqueline attended tx and provided all assist needed througout tx, will assist pt at home. Number of RANGELAND[employer] CONSERVATION LABORER Visits 2 Physical Therapy Visit Comments Patient Comments I want to get up and move around, complete caregiver training with friend Jacqueline. Patient Goals Return home with her friends assistance. Therapy Pain Assessment Pain When Pain Assessed During Mobility Pain Present Pain Present Pain Reported Location Left Hip Intensity 8 Scale Used during knee/hip flexion intially, 2/10 once WB anterior L hip. Description Cramping,Sharp,Spasm,With Movement Pain Behaviors Calling Out,Facial Grimacing, Guarding,Holding Area, Restlessness,Wincing Pain Management Techniques Modification of Treatment,Re- positioning,Timing of Activity with Medications M4 PT-IP Mobility and Gait Start: 03/14/20 16:09 Freq: NEEDED Status: Active Protocol: Document 03/15/20 15:14 SP (Rec: 03/15/20 18:15 SP [id number]) PT-Bed Mobility Assessment Rolling Type of Rolling Roll to Right Level of Assist Standby Assistance Supine to Sit Supine to Sit Standby Assistance Sit to Supine Sit to Supine Standby Assistance Scooting Scooting to Edge of Bed Standby Assistance PT-Transfer Assessment Sit to and From Stand Sit to and from Stand Contact Guard Assistance,1 Person Assistance,Use of Upper Extremities Equipment Transfer Assistive Device Gait Belt,Front Wheeled Walker Orthotic/Prosthetic Devices or Brace: No Transfers Transfer Destination Bed Transfer Technique ambulated using FWW Transfer Ability Level of Assist Contact Guard Assistance,1 Person Assistance,Use of Upper Extremities Comments Mobility Comments Pt c/o 8/10 L anterior thigh spasming pain intially, improved once assisted L knee flexion then self log roll > sitting and scoot EOB self SBA , Jacqueline donned gait belt and provided CGA during pt sit> stand, ambulated step stagger gait with cuing for L knee flexion during swing through and heel toe improved with good no hip ext precautions. Walked to stair and back to room 236 ft using FWW CGA by aura Phillips with increased time for slow pacing control and activity tolerance with pain 05/31 reported anterior thigh, w/c follow but not needed as in am. Pt completed ascend/descend 6 stairs B SPC CG- Min A with support for cane stability by friend with proper patterning, little unsteady but did well. Pt returned to bed sitting> supine using gait belt on LLE for self support and assist heel slide when needed to reposition LLE. Pt had call light, bed alarmed on and all needs in reach before left. Provided warm blankets. Jacqueline friend in room. Orthostatic taken pre mobility: supine 110 /68 HR 92, seated 131/65 HR 94 , standing 105/64 with HR 85. Not concerning and non symptomatic. Gait Assessment Gait Gait Assistance Required: Standby Assistance,Contact Guard Assist,1 Person Assist Distance (Feet) 236 Able to Maintain Weight Bearing Status Yes During Gait Assistive Devices Assistive Device Gait Belt,Front Wheeled Walker Orthotic/Prosthetic Devices or Brace: No Gait Deviations General Gait Pattern Antalgic,Decreased Stride Length,Decreased Feet Clearance,Narrow Based Gait, Step-to Gait Factors Limiting Gait Function Factors Limiting Gait Function Decreased Activity Tolerance, Decreased Strength,Limited Range of Motion,Pain,Poor Balance Comments Gait Comments See mobility comments. Stair Climbing Assessment Evaluation Level of Assist On Stairs Contact Guard Assistance, Minimal Assistance,1 Person Assistance Devices Stair Climbing Assistive Devices Straight Cane Technique/Endurance Stair Climbing Direction Ascend and Descend Stair Climbing Technique Step to Step Number of Steps Climbed 3 Stair Climbing Set # Repetitions (reps) 2 Comments Stair Climbing Comments step to gait, B SPC (has 1 SPC at home and will use walking stick) CGA- Min A by friend. PT-Balance Assessment Sitting Balance and Reactions Static Sitting Balance Ability Good Dynamic Sitting Balance Ability Good Standing Balance and Reactions Static Standing Balance Ability Good Dynamic Standing Balance Ability Fair Device Used FWW M5 PT-IP Objective Assessments Start: 03/14/20 16:09 Freq: NEEDED Status: Active Protocol: Document 03/14/20 14:05 AB (Rec: 03/14/20 16:19 AB [id number]) Orientation Orientation/Cognition Level of Alertness Alert Orientation Name,Place,Situation Language Function Ability No Deficits Noted Safety Awareness Decreased Safety Awareness Memory Description Short Term Impaired Gross Range of Motion Lower Extremity ROM Assessment Within Functional Limits Strength Lower Extremity Strength Assessment Left Impaired Hip 3/5 Knee 4/5 Coordination Assessment Gross Coordination Gross Coordination WNL Sensation Assessment Sensation Gross Sensation WNL Muscle Tone Muscle Tone WNL Yes M6 PT-IP Treatment Start: 03/14/20 16:09 Freq: NEEDED Status: Active Protocol: Document 03/15/20 15:14 SP (Rec: 03/15/20 18:15 SP [id number]) Physical Therapy Treatment Exercises Exercises Ankle Pumps,Gluteal Sets,Quad Sets,Heel Slides Knee ROM Measurement 90 deg Education Education Provided Precautions,Weight Bearing Status,Post-Op Packet,Safety M7 PT-IP Assessment and Plan Start: 03/14/20 16:09 Freq: NEEDED Status: Active Protocol: Document 03/15/20 15:14 SP (Rec: 03/15/20 18:15 SP [id number]) PT Summary Assessment and Plan Potential Rehabilitation Potential Good Status of Condition at Evaluation Stable Summary Impairments Pain,ROM,Strength,Balance, Sensation,Cognition,Bed Mobility,Transfers,Gait, Activity Tolerance Progress Towards Goals Slow Progress due to Pain,Slow Progress due to Activity Tolerance Assessment Summary Pt required SBA bed mob, CGA during transfers and gait using FWW by friend, stair mgt w/ B SPC cg- min by friend with good stabilizing 1 SPC step to gait patterning. Good demonstration of precautions. Pt would benefit from 1 more acute tx to progress gait and continue assesment with pain and BPs. Will continue to reassess. Recommending home with friend to assist her using FWW and outpt PT. Goals Bed Mobility Goal Independent Transfer Goal Independent,Front Wheeled Walker Gait Goal Independent,Front Wheel Walker Gait Distance 200 Other Goals up/down 5 steps using SPC/SHELTER DIRECTOR CGA Days to Meet Goals 5 Frequency of Treatment Frequency Of Treatment Twice a Day Treatment Plan Physical Therapy Treatment Plan Bed Mobility Training,Transfer Training,Gait Training, Therapeutic Exercise,Balance Retraining,Post Op Education, Discharge Planning,Hot or Cold Pack,Neuromuscular Re-ed, Coordination Retraining,Manual Therapy Other Recommendations and Next Treatment ambulation, ther ex Focus Recommendations To Nursing Amount of Assist Needed 1 Person Assist Discharge Recommendations PT Discharge Recommendations Home with Assistance, Outpatient PT Transportation Needs at Discharge Private Vehicle
--- NOTE | 2020-03-15 17:30 | PC.NURSE ---
Addendum entered by Karen Bonilla R.N. 03/15/20 20:49: Pt resting quietly in bed with eyes closed. Awoken by this curriculum writer for hs meds. Immediately begins wincing and crying out c/o spasms left hip. Turns self independently in bed. Utilizing slow, deep breathing. Requests assistance out of bed to bathroom to void. This seems to improve spasms. Pt requests assistance to walk in hallway. Discussed use of narcotic pain medications to help manage spasms. Pt does rate pain @ 7, 8, 9/10. Pt reports, not too satisfied with hydrocodone. Pt is receiving scheduled tylenol. Administered tramadol per emar and will monitor. Ambulatory in hallway with GRAVE DIGGER assist, gait belt and walker. Addendum entered by Karen Bonilla R.N. 03/15/20 19:28: Wakes up from sleep calling out and c/o spasms to left leg. Holding leg. Staff assist pt to commode as per request and pt was given po vistaril to manage. Returned to bed and resting quietly. Has ice pack to left anterior hip. Original Note: Pt up with [employer] workers compensation claims assistant ambulating in hallway @ beginning of shift. Returned to bed. BL scd's off for activity and will replaced @ after discussion with pt. Pt is actively ankle waving while in bed. Admits to spasms to left hip as most uncomfortable part of hip surgery. Medicated with valium to prevent this scenario which pt describes as occurring earlier and unbearable. Ice to left anterior hip replaced and to lower back @ pt's request. Pt reports positive sensation to BL LE's. Encouraged to call for needs.
[2020-03-15] MEDS: SODIUM CHLORIDE 0.9% FLUSH 10 ML IV (20:29)
[2020-03-15] MEDS: TRAMADOL 50 MG TABLET PO (20:35)
[2020-03-16] MEDS: hydrOXYzine pamoate 25 MG CAPSULE PO (00:30)
[2020-03-16] MEDS: diazePAM 5 MG TABLET PO (01:24)
[2020-03-16] MEDS: DEXAMETHASONE 4 MG/ML VIAL IV ×2 (01:24→09:17)
[2020-03-16 04:00] VITALS: BP 114/50; PULSE 84; RESP 16; TEMP 36.9; O2SAT 98
[2020-03-16] MEDS: HYDROCODONE/ACET 5/325 TABLET 2 TAB PO (06:58)
[2020-03-16 07:52] VITALS: BP 126/70; PULSE 73; RESP 17; TEMP 36.8; O2SAT 99
--- NOTE | 2020-03-16 08:06 | P.DS_ITS ---
History of Present Illness History of Present Illness Date Patient Seen: 03/16/20 Time Patient Seen: 08:06 Chief complaint: Left Total Hip Arthroplasty/Anterior Approach *OPB Narrative: The patient has had progressively worsening left hip pain with radiographic changes consistent with arthritis. Non-operative management has failed and the patient has requested total hip replacement. The risks, benefits and alternatives to surgery were discussed with the patient prior to proceeding. Risks discussed included, but were not limited to, failure to relieve pain, leg length discrepancy, dislocation, stiffness, infection, nerve damage, deep venous thrombosis, pulmonary embolism, stroke, coma, heart attack, permanent paralysis and , as well as the potential need for eventual revision of the prosthetic. Discharge Providers Provider Date of admission: 03/15/20 13:00 Discharge Date: 03/16/20 Primary care physician: Maryana Howard DO Consults: 03/09/20 09:44 Consult to Respiratory Therapy Evaluate & Treat Comment: INPT 03/14 JEWELL-declines CPAP Physician Instructions: Evaluate and treat 03/14/20 06:00 Consult to Anesthesiology Routine Comment: Consulting Provider: Anesthesiologist Reason for consultation: Regional block for post operative pain control 03/14/20 11:47 Consult to Discharge Planning Routine Comment: Consult to Physical Therapy Evaluate & Treat Comment: Physician Instructions: post op OSMAR protocol Consult to Respiratory Therapy Evaluate & Treat Comment: Physician Instructions: Evaluate and treat 03/15/20 14:44 Consult to Home Health Routine Comment: Reason For Exam: Home Health P.T, O.T, Bath Aide. Discharge provider: Nuria Vieira PA-C Summary Hospital Course Discharge Diagnosis: s/p L OSMAR History of stroke Spinal stenosis Restless leg syndrome Osteoporosis Glaucoma Depression Exercise-induced asthma Hospital Course: Anastasia was admitted for a total hip arthroplasty with Dr. Cruz. Postop day 1 she had significant pain and spasms. X-rays were obtained which came back WNL. She was started on Decadron and Valium. She is doing significantly better today. She has mobilized already with physical therapy. She is eating and voiding without difficulty or assistance. Exam Vital Signs (past 8 hours): - 03/16/20 04:00 03/16/20 07:52 Temperature 98.4 F 98.3 F Pulse Rate 84 73 Respiratory Rate 16 17 Blood Pressure 114/50 L 126/70 Pulse Oximetry 98 99 Oxygen Delivery Method Room Air Oxygen Flow Rate 0 Narrative Exam Narrative: Patient sitting in bedside chair no acute distress. Alert orient x3. Calves are soft, compressible, nontender bilaterally. Dorsalis pedis pulses 2+. Stable to actively dorsiflex plantar flex. Sensation intact to light touch throughout bilateral lower extremities. Dressing on left anterior hip is CDI. No complaints this morning. Objective Labs Result Diagrams: 03/15/20 06:35 [facility] Medical History (Updated 03/09/20 @ 09:35 by Tata Santos RN) Arthritis Cellulitis Depression Elbow pain, left Exercise-induced asthma Glaucoma Herpes Hypotension Low back pain Osteoarthritis Osteoporosis Pseudogout RLS (restless legs syndrome) Shingles Skin cancer (06/2019) Sleep apnea Spinal stenosis TIA (transient ischemic attack) Surgical History (Updated 03/09/20 @ 09:27 by Tata Santos RN) History of 3 abortions History of arthroscopy of both knees Hx of bilateral cataract extraction Hx of eye surgery Hx of tubal ligation Social History household members: none Smoking Status: Former smoker alcohol intake: current Discharge Plan Discharge Plan Patient Disposition: Home Provider Discharge Comment: Discharge home when safe ambulating Discharge orders & Medications Prescriptions: New acetaminophen 325 mg Tablet 650 mg PO TID Qty: 30 RF: 0 aspirin 81 mg Tablet,Delayed Release (Dr/Ec) 81 mg PO BID Qty: 30 RF: 0 docusate sodium [DOK] 100 mg Capsule 100 mg PO BID Qty: 30 RF: 0 diazepam 5 mg Tablet 5 mg PO Q6HR PRN (Reason: Anxiety) Qty: 30 RF: 0 hydroxyzine pamoate 25 mg Capsule 25 mg PO Q6-8H PRN (Reason: Muscle Spasm) Qty: 30 RF: 1 hydrocodone-acetaminophen [[place]] 10-325 mg tablet 1 tab PO Q4-6H PRN (Reason: pain) Qty: 50 RF: 0 Continued naproxen 500 mg Tablet 500 mg PO BID PRN (Reason: Pain) RF: 0 Discontinued hydrocodone-acetaminophen 5-325 mg Tablet 1 tab PO BEDTIME PRN (Reason: Pain, sleep) RF: 0 Follow up/Referrals: Maryana Howard DO [Primary Care Provider] - Kate Cruz MD [Physician] - Diet/Activity/Treatments Diet: Diet as Tolerated Activity: ambulate multiple times a day. Cold/Heat Therapy: Use ice to hip multiple times a day. Other treatments: Use baby aspirin to prevent a blood clot. Skin/Wound/Dressing Care Report to your healthcare provider any signs of infection, such as:: chills, fever, night sweats, increased pain, unusual drainage and unusual redness Dressing: Leave dressing on. Okay to shower. Visit Report/Discharge Packet Instructions: DI for Hip Replacement Stand Alone Forms: Surgery Discharge Discharge Data Primary Care Provider: Maryana Howard Attending Provider: Kate Cruz
--- NOTE | 2020-03-16 08:15 | PT.IPTN ---
Addendum entered and electronically signed by Roxana Barrios, [employer] 03/16/20 08:58: Orthostatics taken: supine BP 147/74 HR 75, seated 114/67 HR 75, seated 2 min 127/72 HR 72, stand 103/41 HR 79, stand 2 min 127/53 HR 81 non symptomatic, no report of dizziness. Original Note: Current Diagnoses Unilateral primary osteoarthritis, left hip (03/15/20) Surgery Performed Operation Date: 03/14/20 07:45 Actual Procedures p Total Hip Arthroplasty/Anterior Approach(Left) - Kate Cruz MD Physical Therapy Treatment Note M2 PT-IP Current Condition Start: 03/14/20 16:09 Freq: NEEDED Status: Active Protocol: Document 03/14/20 14:05 AB (Rec: 03/14/20 16:19 AB [id number]) Physical Therapy Current Condition Current Condition Evaluation Date 03/14/20 Treatment Diagnosis s/p L OSMAR anterior approach; difficulty in walking Onset Date 03/14/20 Precautions Anterior Hip Precautions No Hip Extension,No Hip External Rotation Weight Bearing Status Weight Bearing Status Weight Bear as Tolerated Allowed Weight Bearing Amount (enter % LLE: WBAT or #) (%) M3 PT-IP Subjective Start: 03/14/20 16:09 Freq: NEEDED Status: Active Protocol: Document 03/16/20 07:35 SP (Rec: 03/16/20 08:52 SP [id number]) Subjective Physical Therapy Visit Type Type Treatment Note Visit Start Time 07:35 Visit Stop Time 08:15 Total Visit Minutes 40 Number of MOUNTER [employer]INETS Visits 3 Physical Therapy Visit Comments Patient Comments I am doing really well today, less thigh spasming with medication taking but still weak straightenng my knee laying down. Patient Goals Return home with her friend's (Jacqueline) assistance. Therapy Pain Assessment Pain When Pain Assessed During Mobility Pain Present Pain Present Pain Reported Location Left Hip Intensity 3 Scale Used Numeric (0 - 10) Description Spasm,With Movement Pain Behaviors Facial Grimacing,Guarding, Restlessness,Wincing Pain Management Techniques Re-positioning,Timing of Activity with Medications M4 PT-IP Mobility and Gait Start: 03/14/20 16:09 Freq: NEEDED Status: Active Protocol: Document 03/16/20 07:35 SP (Rec: 03/16/20 08:52 SP [id number]) PT-Bed Mobility Assessment Rolling Type of Rolling Roll to Right Level of Assist Independent Supine to Sit Supine to Sit Standby Assistance Sit to Supine Sit to Supine Standby Assistance Scooting Scooting to Edge of Bed Standby Assistance PT-Transfer Assessment Sit to and From Stand Sit to and from Stand Standby Assistance,Use of Upper Extremities Equipment Transfer Assistive Device Gait Belt,Front Wheeled Walker Orthotic/Prosthetic Devices or Brace: No Transfers Transfer Destination Chair Transfer Technique ambulated using FWW Transfer Ability Level of Assist Standby Assistance,Use of Upper Extremities Comments Mobility Comments Pt was reclined in bed. Reviewed post op HEP using gait belt for self assist during heel slides due to decreased strength, ankle pumps, slight quad facilitation engagement to prep for moving to EOB. supine >sitting hooking RLE under LLE and use of gait belt, scoot to EOB SBA. Sit>stand with good BUE support and use of FWW once standing, intially more weight through RLE but with cuing quad facilitation into extension able to equal wt BLE. Ambulated around nursing station and back to chair in room approx 150 ft SBA with cuing for feet parallel, slightly more than stagger patterning withing precautions, good recall and demonstration. Cued increase L knee/ hip flexion to allow foot clearance and decrease hip hike then terminal L knee swing to heel strike with improvement in self corrections to allow normal gait and WB through BUE as needed and tolerated. Stand to sit SBA using BLE and LLE slight forward with controlled descent. Pt has chair alarm armed, call light and all needs in reach. Physician entered room end of tx and reported progress made during stay and from therapy perspective pt is ready to return home with friend toassist her when medically stable. Pt is set up for outpt therapy and hopes will get further education on quality gait to get back to normal again with LRAD or none. Notified nursing to provide CP for L LE and educated pt use at home for pain control assist with verbal understanding. Gait Assessment Gait Gait Assistance Required: Standby Assistance,Contact Guard Assist,1 Person Assist Distance (Feet) 150 Able to Maintain Weight Bearing Status Yes During Gait Assistive Devices Assistive Device Gait Belt,Front Wheeled Walker Orthotic/Prosthetic Devices or Brace: No Gait Deviations General Gait Pattern Antalgic,Decreased Stride Length,Decreased Feet Clearance,Narrow Based Gait, Step-to Gait Factors Limiting Gait Function Factors Limiting Gait Function Decreased Activity Tolerance, Decreased Strength,Limited Range of Motion,Pain,Poor Balance Comments Gait Comments See mobility for details. Stair Climbing Assessment Comments Stair Climbing Comments Completed yesterday, not needed to reassess today. PT-Balance Assessment Sitting Balance and Reactions Static Sitting Balance Ability Good Dynamic Sitting Balance Ability Good Standing Balance and Reactions Static Standing Balance Ability Good Dynamic Standing Balance Ability Fair Device Used FWW M5 PT-IP Objective Assessments Start: 03/14/20 16:09 Freq: NEEDED Status: Active Protocol: Document 03/14/20 14:05 AB (Rec: 03/14/20 16:19 AB [id number]) Orientation Orientation/Cognition Level of Alertness Alert Orientation Name,Place,Situation Language Function Ability No Deficits Noted Safety Awareness Decreased Safety Awareness Memory Description Short Term Impaired Gross Range of Motion Lower Extremity ROM Assessment Within Functional Limits Strength Lower Extremity Strength Assessment Left Impaired Hip 3/5 Knee 4/5 Coordination Assessment Gross Coordination Gross Coordination WNL Sensation Assessment Sensation Gross Sensation WNL Muscle Tone Muscle Tone WNL Yes M6 PT-IP Treatment Start: 03/14/20 16:09 Freq: NEEDED Status: Active Protocol: Document 03/16/20 07:35 SP (Rec: 03/16/20 08:52 SP [id number]) Physical Therapy Treatment Exercises Exercises Ankle Pumps,Gluteal Sets,Quad Sets,Heel Slides,Seated Knee Flexion/Extension Knee ROM Measurement 90 deg Education Education Provided Precautions,Weight Bearing Status,Post-Op Packet,Safety Other Treatments Other Treatment Performed educated can use hand or rolling pin for gentle massage rolling to ITB, distal quad and adductors for decreased tightness. Decreased strength in intiating L knee flexion, cued slow little L quad and HS facilitation wtih use of gait belt for heel slides and cuing for quad activation carry over extension into standing for equal wt distribution pre gait safety awareness. M7 PT-IP Assessment and Plan Start: 03/14/20 16:09 Freq: NEEDED Status: Active Protocol: Document 03/16/20 07:35 SP (Rec: 03/16/20 08:52 SP [id number]) PT Summary Assessment and Plan Potential Rehabilitation Potential Good Status of Condition at Evaluation Stable Summary Impairments Pain,ROM,Strength,Balance, Sensation,Cognition,Bed Mobility,Transfers,Gait, Activity Tolerance Progress Towards Goals Progressing Toward Goals,Slow Progress due to Pain,Slow Progress due to Activity Tolerance Assessment Summary Pt was SBA during all mobility used fWW with good recall and demonstration of hip precautions, improve pain control today. Pt is ok to return home with friend to assist her when medically stable, out pt PT already scheduled. Goals Bed Mobility Goal Independent Transfer Goal Independent,Front Wheeled Walker Gait Goal Independent,Front Wheel Walker Gait Distance 200 Other Goals up/down 5 steps using SPC/CHECKROOM CHIEF CGA Days to Meet Goals 5 Frequency of Treatment Frequency Of Treatment Twice a Day Treatment Plan Physical Therapy Treatment Plan Bed Mobility Training,Transfer Training,Gait Training, Therapeutic Exercise,Balance Retraining,Post Op Education, Discharge Planning,Hot or Cold Pack,Neuromuscular Re-ed, Coordination Retraining,Manual Therapy Other Recommendations and Next Treatment ambulation, ther ex Focus Recommendations To Nursing Amount of Assist Needed Standby Assistance Discharge Recommendations PT Discharge Recommendations Home with Assistance, Outpatient PT Transportation Needs at Discharge Private Vehicle
[2020-03-16] MEDS: ACETAMINOPHEN 325 MG TABLET 650 MG PO (09:17)
[2020-03-16] MEDS: DOCUSATE 100 MG CAPSULE PO (09:18)
[2020-03-16] MEDS: ASPIRIN EC 81 MG TABLET PO (09:18)
[2020-03-16] MEDS: SODIUM CHLORIDE 0.9% FLUSH 10 ML IV (09:19)
--- NOTE | 2020-03-16 10:19 | CM.DPC ---
DCP Cont: Patient is being discharged home today. Faxed [facility] DC summary, orders, and face to face. Intitial referral was sent yesterday. Will have Daphne, home care coordinator, call [facility] and give them an update. Patient will be needing P.T, O.T, bath aide. P: Patient will be discharging home today with [facility], per choice. Michelle Ivey RN/auto fleet manager
--- NOTE | 2020-03-16 11:35 | PC.NURSE ---
Discharge instructions and home care handouts reviewed with patient, she states understanding and has no further questions or concerns. IV dc'd intact. Aquacel dressing remains intact. Patient will call Dr. Cruz's office on 03/18 when open to confirm her follow up appointment schedule. Prescriptions given to patient to fill at pharmacy of choice. Patient escorted out via wheelchair to home with a friend, with all belongings, by [employer].
== END 2020-03-16 11:09 | disposition home or self-care (01) ==
LOC: OR 13:51 → AC 13:51
PROVIDERS: Admitting Provider Orthopaedic Surgery; PCP Family Medicine; Referring Provider Family Medicine; Visit Provider Orthopaedic Surgery
PROC: (CPT 27130; principal; 2020-03-14 07:45)
DX: M16.12 Unilateral primary osteoarthritis, left hip (principal); J45.909 Unspecified asthma, uncomplicated; Z86.73 Personal history of transient ischemic attack (TIA), and cerebral infarction without residual deficits; M51.36 Other intervertebral disc degeneration, lumbar region
CPT/HCPCS: 27130; 36415; 73502; 85014; 85018; 97110; 97116; 97161; 97530; C1776; G0378; C9290; J0690; J1100; J2250; J2405; J2704; J3010